=== PATIENT | male | born 1990 | race Two or more races ===

== ENCOUNTER 2020-05-06 15:49 | Emergency (ER) | payer SELFPAY ==
--- NOTE | 2020-05-06 16:47 | EDM.PDOC ---
ED HPI GENERAL MEDICAL PROBLEM - General Chief Complaint: Lower Extremity Injury/Pain Stated Complaint: RT ANKLE PAIN Time Seen by Provider: 05/06/20 16:30 Source of Information: Reports: Patient History Limitations: Reports: No Limitations - History of Present Illness INITIAL COMMENTS - FREE TEXT/NARRATIVE: 2 days prior to ED arrival patient was visiting family in [place] and stated he walked a lot that day. He started experiencing right foot pain along the lateral edge and medial malleolus. He denies any injury or trauma to the foot. He rated the pain 8/10 2 days ago, today its 6/10 when he bears weight and 2/10 if he elevates it. He has not tried any OTC pain relievers or ice/heat. Onset: Gradual Duration: Day(s): (2) Location: Reports: Lower Extremity, Right Quality: Reports: Ache Severity: Moderate Improves with: Reports: Rest Worsens with: Reports: Movement Associated Symptoms: Reports: No Other Symptoms Right Foot Pain Score (Numeric/FACES): 6 - Related Data Allergies Allergy/AdvReac Type Severity Reaction Status Date / Time cefaclor [From Ceclor] Allergy Cannot Verified 05/06/20 16:40 Remember Home Meds: Home Meds NK [No Known Home Meds] 05/06/20 [History] Social & Family History - Tobacco Use Smoking Status *Q: Current Every Day Smoker Years of Tobacco use: 10 Packs/Tins Daily: 1 Review of Systems - Review of Systems Review Of Systems: See Below Constitutional: Reports: No Symptoms Eyes: Reports: No Symptoms Ears: Reports: No Symptoms Nose: Reports: No Symptoms Mouth/Throat: Reports: No Symptoms Respiratory: Reports: No Symptoms Cardiovascular: Reports: No Symptoms GI/Abdominal: Reports: No Symptoms Genitourinary: Reports: No Symptoms Musculoskeletal: Reports: Foot Pain (right ) Skin: Reports: No Symptoms Neurological: Reports: No Symptoms ED EXAM, GENERAL - Physical Exam Exam: See Below Exam Limited By: No Limitations General Appearance: Alert, WD/WN, No Apparent Distress Ears: Normal External Exam Nose: Normal Inspection, Normal Mucosa Head: Atraumatic, Normocephalic Peripheral Pulses: 2+: Dorsalis Pedis (L), Dorsalis Pedis (R) Extremities: Normal Inspection, Other (pain with palpation along lateral right foot edge, inferior medial malleolus, and ventral portion of right foot along the 4th and 5th metatarsal region. ). No: Redness Neurological: Alert, Oriented, Abnormal Gait (limps when bearing weight on right foot) Psychiatric: Normal Affect Skin Exam: Warm, Dry, Intact Course - Vital Signs Last Recorded V/S: Last Vital Signs Temp 97 F 05/06/20 16:39 Pulse 62 05/06/20 16:39 Resp 12 05/06/20 16:39 BP 103/55 L 05/06/20 16:39 Pulse Ox 100 05/06/20 16:39 - Re-Assessments/Exams Free Text/Narrative Re-Assessment/Exam: 05/06/20 17:00 an indra wrap was applied for comfort. offered ketoralac and pt refused. advised patient that he should stay off the foot and rest it for a few days. advanced activity as tolerated. Recommended ibuprofen regularly for pain over the next few days. patient stated that he couldn't wait anymore and walked out without discharge paperwork. Departure - Departure Time of Disposition: 17:04 Disposition: Against Medical Advice 07 Clinical Impression: Sprain of foot, right, Unspecified soft tissue disorder related to use, overuse and pressure, right ankle and foot - Discharge Information *PRESCRIPTION DRUG MONITORING PROGRAM REVIEWED*: Not Applicable *COPY OF PRESCRIPTION DRUG MONITORING REPORT IN PATIENT ELIGIO: Not Applicable Referrals: PCP,None [Primary Care Provider] - Forms: ED Department Discharge Sepsis Event Note (ED) - Evaluation Sepsis Screening Result: No Definite Risk - Focused Exam Vital Signs: Vital Signs Temp Pulse Resp BP Pulse Ox 05/06/20 16:39 97 F 62 12 103/55 L 100 05/06/20 16:18 97 F 62 12 103/55 L 100
== END 2020-05-06 17:03 | disposition left against medical advice (07) ==
LOC: JP.ED 15:49
DX: S93.601A Unspecified sprain of right foot, initial encounter (principal); S93.401A Sprain of unspecified ligament of right ankle, initial encounter; Z88.1 Allergy status to other antibiotic agents; F17.210 Nicotine dependence, cigarettes, uncomplicated; X50.9XXA Other and unspecified overexertion or strenuous movements or postures, initial encounter
CPT/HCPCS: 99282; 99283